=== PATIENT | male | born 1965 | race Two or more races ===

== ENCOUNTER 2025-08-09 10:14 | Emergency (ER) | payer OTHER, SELFPAY ==
[2025-08-09 10:15] VITALS: BMI 26.1
[2025-08-09 11:02] VITALS: BP 166/92; PULSE 70; RESP 18; TEMP 37.2; O2SAT 98; BMI 26.1
--- NOTE | 2025-08-09 11:02 | PD.EDEYE ---
ED Eye Problem RME/HPI General Chief complaint: Eye Problems Stated complaint: L EYE REDNESS S/P DIRT FALLING IN HIS EYES X2 DAYS Time Seen by Provider: 08/09/25 10:57 Source: patient Arrival date/time: 08/09/25 10:14 60-year-old male with no known medical history presents to the emergency room with a chief complaint of irritation to his left eye after falling in his eye 2 days ago. Mode of arrival: ambulatory Limitations: no limitations Related Data Previous Rx's ?Medication ?Instructions ?Recorded ciprofloxacin HCl 0.3 % eye drops See Rx Instructions ophthalmic 08/09/25 (eye) .COMPLEX #5 mL Allergies Allergy/AdvReac Type Severity Reaction Status Date / Time caffeine AdvReac Unknown SNEEZING Verified 08/09/25 10:17 Review of Systems Review of Systems Systems Reviewed: All systems reviewed, normal except as documented Constitutional Constitutional: Reports system reviewed and no additional complaints, except as documented, Denies fatigue, Denies fever(s), Denies headache(s) and Denies weakness Eyes Eyes: Reports system reviewed and no additional complaints, except as documented, Denies blind spots, Reports blurry vision, Denies change in vision, Denies decreased night vision, Denies diplopia, Denies eye discharge, Denies dry eyes, Denies exophthalmos, Denies floaters, Reports irritation and Reports eye pain ENT Ears, Nose, Mouth, and Throat: Reports system reviewed and no additional complaints, except as documented, Denies otalgia, Denies headache(s), Denies nasal congestion, Denies throat swelling and Denies vertigo Cardiovascular Cardiovascular: Reports system reviewed and no additional complaints, except as documented, Denies chest pain, Denies dyspnea and Denies dyspnea on exertion Respiratory Respiratory: Reports system reviewed and no additional complaints, except as documented, Denies chest congestion, Denies cough, Denies dyspnea, Denies dyspnea on exertion and Denies wheezing Gastrointestinal Gastrointestinal: Reports system reviewed and no additional complaints, except as documented, Denies abdominal pain, Denies cramping, Denies nausea and Denies vomiting Genitourinary Genitourinary: Reports system reviewed and no additional complaints, except as documented, Denies dysuria and Denies hematuria Musculoskeletal Musculoskeletal: Reports system reviewed and no additional complaints, except as documented and Denies back pain Integumentary/Breasts Skin/Breast: Reports system reviewed and no additional complaints, except as documented and Denies wounds Neurologic Neurologic: Reports system reviewed and no additional complaints, except as documented, Denies confusion, Denies headache(s), Denies lack of coordination, Denies vertigo and Denies weakness Psychiatric Psychiatric: Reports system reviewed and no additional complaints, except as documented, Denies anxiety, Denies confusion, Denies depression, Denies paranoia, Denies suicidal ideation and Denies tactile hallucinations Endocrine Endocrine: Reports system reviewed and no additional complaints, except as documented and Denies fatigue Hematologic/Lymphatic Hematologic/Lymphatic: Reports system reviewed and no additional complaints, except as documented and Denies lymphadenopathy Allergic/Immunologic Allergic/Immunologic: Reports system reviewed and no additional complaints, except as documented, Denies throat swelling, Denies urticaria and Denies wheezing ED Exam General Limitations: Present no limitations General appearance: Present alert and in no apparent distress Head Head exam: Present atraumatic Eye Eye exam: Present normal appearance, PERRL and EOMI; Absent conjunctival injection, nystagmus, miosis or mydriasis Expanded Eye Exam Pupils: Bilateral: regular, round and reactive Sclera/Conjunctival: left: foreign body ENT ENT exam: Present normal exam, normal oropharynx and mucous membranes moist Neck Neck exam: Present normal inspection, full ROM and trachea midline Chest Chest inspection: Present normal inspection and symmetric chest wall rise Respiratory Respiratory exam: Present normal lung sounds bilaterally Cardiovascular Cardiovascular exam: Present regular rate, normal rhythm and normal heart sounds Abdominal Exam Abdominal exam: Present soft and normal bowel sounds Extremities Exam Extremities exam: Present normal inspection and full ROM Back Exam Back exam: Present normal inspection and full ROM Neurological Exam Neurological exam: Present alert, oriented X3 and CN II-XII intact Psychiatric Psychiatric exam: Present normal affect and normal mood Skin Skin exam: Present warm, dry, intact and normal color Course Quality Measures none Orders Category Date Time Status Pressley Lamp to Bedside X1 Care 08/09/25 11:02 Active Fluorescein Sodium [Bio-Dinorah] Med 08/09/25 11:02 Discontinued 1 mg LEFT EYE X1 ONE TETRACAINE Op Skye 0.5% [Pontocaine Op Skye 0.5%] Med 08/09/25 11:02 Discontinued 1 drop LEFT EYE X1 ONE Vital Signs Vital signs: Vital Signs Temperature 98.9 F 08/09/25 11:02 Pulse Rate 70 08/09/25 11:02 Respiratory Rate 18 08/09/25 11:02 Blood Pressure 166/92 H 08/09/25 11:02 Pulse Oximetry (%) 98 08/09/25 11:02 Oxygen Delivery Method Aerosol Mask 08/09/25 11:02 PROCEDURES: Pressley Lamp Exam Left eye: Flourescein uptake:: Yes Pressley Lamp Findings: Corneal abrasion Eye MDM Narrative MDM Narrative:: 60-year-old male with no known medical history presents to the emergency room with a chief complaint of irritation to his left eye after falling in his eye 2 days ago. Patient is hemodynamically stable and in no apparent distress Physical examination shows a small speck of dust in his left eye near his pupil. Tetracaine was used and a Pressley lamp examination was done and I was able to remove the foreign body with no complications. After the was up examination there is a small corneal abrasion. Antibiotic sent to the patient's pharmacy Patient was discharged and educated to follow-up with primary care provider in the next 24 to 48 hours and return to the emergency room for any evidence of worsening signs or symptoms Patient data External records reviewed:: [facility] previous records Clinical information provided by:: patient Social determinants that could affect healthcare access:: none Patient has the following chronic illnesses:: No chronic illness How is presenting disease/condition affected by chronic disease/condition?: no chronic disease Evaluation data The following diagnostics were reviewed and interpreted by me:: lab results and radiology exam(s) Lab and/or radiology exams considered but not ordered:: Labs and radiology exams considered and ordered Interpretation Summary: N/A Medications / Prescriptions Medications or Prescriptions considered but not ordered:: No medication given Medication administrations:: Medication Administration History Discontinued Medications Fluorescein Sodium (Fluorescein Sod 1 Mg Strp) 1 mg LEFT EYE X1 ONE Stop: 08/09/25 11:03 Last Admin: 08/09/25 11:53 Dose: 1 mg Documented By: Tetracaine HCl (Tetracaine Pf Op Skye 0.5% 4 Ml Drpette) 1 drop LEFT EYE X1 ONE Stop: 08/09/25 11:03 Last Admin: 08/09/25 11:53 Dose: 1 drop Documented By: Medication given Consultations Consultation(s) initiated? (list below): No Diagnosis Eye Problem Differential Diagnosis: corneal abrasion, corneal ulcer and other (Foreign body in left eye) Most likely diagnosis given after review of the tests above:: Corneal abrasion Admission Indicated Admission indicated?: not indicated Admission Request Was there a request for admission?: No Disposition Plan Disposition Plan: Discharge Discharge Attestation Discharge Attestation: The patient and all family members were given an opportunity to ask questions and understood the discharge instructions. Discharge instructions specifically effects, indications for sooner follow up or return to the emergency department, and the expected course of current diagnosis. Patient condition: Stable Discharge Plan Plan Patient Disposition: HOME (Self Care) Discharge Disposition comment: Stable Prescriptions/Referrals Prescriptions/Med Rec: New ciprofloxacin HCl 0.3 % drops See Rx Instructions .ROUTE .COMPLEX Qty: 5 0RF Rx Instructions: put 1-2 drps in affected eye(s) every 2hr up to 8 times/day x2days; then 4 times/day x5days Problem List Clinical Impression: Corneal abrasion, Foreign body in eyeball, left Patient/Caregiver Discharge Instructions Education Materials: ED Corneal Abrasion Additional Instructions: Por favor, consulte con estes m?dico de cabecera en las pr?ximas 24 a 48 horas. Ten?a un kevon?o fragmento de suciedad o residuo incrustado en la c?rnea del evan robert. El cuerpo extra?o se extrajo con un hisopo de algod?n y no hubo complicaciones. Posteriormente, revisamos el evan y se observ? marciano abrasi?n corneal en la norma donde se extrajo el cuerpo extra?o. Se le recetaron gotas antibi?alycia; por favor, rec?jalas en la farmacia y ?selas seg?n las indicaciones. Si presenta cualquier signo o s?ntoma de empeoramiento, regrese a la corrie de emergencias de inmediato. Print Language: Burundian Stand Alone Forms: Valentina Award Info., Work/School Release, Patient Portal Info Letter PA/SCALE ADJUSTER Supervising Physician PA/SCALE ADJUSTER Supervising Physician: Dr. Gerardo
[2025-08-09] MEDS: TETRACAINE PF OP SOL 0.5% 4 ML DRPETTE 1 DROP LEFT EYE (11:53)
[2025-08-09] MEDS: FLUORESCEIN SOD 1 MG STRP LEFT EYE (11:53)
== END 2025-08-09 14:18 | disposition home or self-care (01) ==
LOC: SERX 12:55
PROVIDERS: Emergency Provider Nurse Practitioner Family; PCP Family Medicine
DX: T15.02XA Foreign body in cornea, left eye, initial encounter (principal); W44.9XXA Unspecified foreign body entering into or through a natural orifice, initial encounter
CPT/HCPCS: 99281